=== PATIENT | male | born 2000 | race Two or more races ===

== ENCOUNTER 2023-08-18 02:26 | Emergency (ER) | payer OTHER ==
[~2023-08-18] VITALS: Ht 175.3 cm; Wt 91.4 kg
[2023-08-18 02:26] VITALS: BP 116/65; PULSE 67; RESP 15; TEMP 98.3
[2023-08-18] MEDS ORDERED: AZITTAB PO (03:55)
[2023-08-18] MEDS ORDERED: PROM1SOL4 PO (03:55)
[2023-08-18] MEDS ORDERED: ALBU108A5 IN (03:55)
[2023-08-18 04:37] VITALS: O2SAT 97
== END 2023-08-18 04:35 | disposition home or self-care (01) ==
LOC: ER 02:26
DX: J06.9 Acute upper respiratory infection, unspecified (principal)